=== PATIENT | female | born 1960 | race Caucasian/White ===

== ENCOUNTER → 2017-03-27 | Outpatient (CLI) | payer BC, OTHER ==
[~2017-03-27] MED LIST: GADOBUTROL 10 ML VIAL IVP ONE
== END ==
LOC: FIMAGING 07:38
PROVIDERS: ATTEND Family Medicine
DX: K76.89 Other specified diseases of liver (principal); R91.1 Solitary pulmonary nodule
CPT/HCPCS: A9585

== ENCOUNTER → 2017-03-29 | Outpatient (CLI) | payer BC ==
[~2017-03-29] MED LIST changes: -GADOBUTROL 10 ML VIAL IVP ONE; +IOPAMIDOL (ISOVUE-300) 100 ML BTL ONE
== END ==
LOC: FIMAGING 10:08
PROVIDERS: ATTEND Family Medicine
DX: K76.89 Other specified diseases of liver (principal); R91.1 Solitary pulmonary nodule
CPT/HCPCS: Q9967

== ENCOUNTER → 2017-05-07 | Outpatient (CLI) | payer BC | LOC: FIMAGING 10:46 | PROVIDERS: ATTEND Family Medicine | DX: H53.8 Other visual disturbances (principal); R41.0 Disorientation, unspecified; R51 Headache ==